=== PATIENT | male | born 1935 ===

== ENCOUNTER 2018-03-19 10:09 | Outpatient (CLI) | payer MEDICARE, BC | END 2018-03-19 10:10 | disposition home or self-care (01) | LOC: C.CTH 10:09 | DX: R31.0 Gross hematuria (principal) ==

== ENCOUNTER 2018-05-31 09:52 | Outpatient (CLI) | payer MEDICARE, BC | END 2018-05-31 09:53 | disposition home or self-care (01) | LOC: C.RADH 09:52 ==